=== PATIENT | male | born 1970 | race Caucasian/White ===

== ENCOUNTER 2023-12-19 11:15 | Inpatient (IN) ==
[2023-12-19 12:04] LABS: Basophils # (auto) 0.03 K/uL (0.00-0.20); Basophils % (auto) 0.4 %; Eosinophils # (auto) 0.16 K/uL (0.00-0.50); Eosinophils % (auto) 2.2 %; Hematocrit (blood only) 44.7 % (42.0-52.0); Hemoglobin 14.7 g/dl (14.0-18.0); Immature Granulocytes # (auto) 0.03 K/uL (0.01-0.20); Immature Granulocytes % (auto) 0.4 %; Lymphocytes # (auto) 1.33 K/uL (1.20-3.40); Lymphocytes % (auto) 18.1 %; Mean Corpuscular Hemoglobin 28.4 pg (25.0-34.0); Mean Corpuscular Hgb Conc 32.9 g/dL (32.0-36.0); Mean Corpuscular Volume 86.3 fL (80.0-100.0); Monocytes # (auto) 0.54 K/uL (0.11-0.59); Monocytes % (auto) 7.4 %; Neutrophils # (auto) 5.24 K/uL (1.40-6.50); Neutrophils % (auto) 71.5 %; Platelet Count 289 K/uL (130-400); RDW Coefficient of Variation 13.5 % (11.5-14.5); RDW Standard Deviation 42.3 fL (36.4-46.3); Red Blood Count 5.18 M/uL (4.70-6.10); White Blood Count 7.33 K/ul (4.8-10.8)
[2023-12-19 12:18] LABS: Albumin Globulin Ratio 1.7 (0.9-2); Albumin Level 4.9 gm/dl (3.4-5.0); BUN Creatinine Ratio 12.9 (10-20); Bilirubin,Total 0.5 mg/dl (0.2-1.0); Calcium 9.6 mg/dl (8.6-10.3); Globulin 2.9 gm/dl (2.5-4.0); Potassium 3.8 mmol/L (3.5-5.1); Total Protein 7.8 gm/dl (6.0-8.3)
[2023-12-19 12:26] LABS: INR 3.2 (0.9-1.1); Partial Thromboplastin Ratio 1.6; Partial Thromboplastin Time 44 Seconds (21-31); Prothrombin Time 31.7 Seconds (9.0-12.0)
[2023-12-19 12:29] LABS: Acetaminophen < 3 ug/ml (10-30); Salicylate < 3.0 mg/dl (3.0-30)
[2023-12-19 12:31] LABS: Thyroid Stimulating Hormone 0.889 uIu/ml (0.300-4.500)
--- NOTE | 2023-12-19 12:59 | CT Scan Report ---
CT OF THE HEAD WITHOUT CONTRAST CLINICAL HISTORY: Altered mental status. COMPARISON STUDY: No previous studies for comparison. CT DOSE: 663.26 mGy.cm TECHNIQUE: Helical axial images of the head were obtained without IV contrast. Automated exposure con trol was utilized for the study. A dose lowering technique was utilized adhering to the principles o f ALARA. FINDINGS: This study is mildly compromised by motion artifact. No acute intracranial hemorrhage, midl ine shift or mass effect is present. The ventricular system is unremarkable. The basal cisterns are p atent. No extra-axial collections are present. There are no findings to suggest acute dural sinus thr ombosis or acute territorial infarct. No significant calvarial abnormalities are present. Visualized portions of the sinuses and mastoid air cells are clear. IMPRESSION: 1. No acute intracranial findings. 2. No calvarial fractures. ACT 112: Negative or not required by law. Electronically signed by: Jayden Luna M.D. 12/19/2023 12:57 PM
--- NOTE | 2023-12-19 13:16 | XRay Report ---
XR chest 1V portable CLINICAL HISTORY: Chest pain. COMPARISON STUDY: No previous studies for comparison. FINDINGS: There are median sternotomy wires and a prosthetic aortic valve. Lung volumes are normal. I s no consolidation. An 8 mm right upper lung nodular density is noted. A 1.3 cm irregular density lat eral to the right hilum is present. There is no pneumothorax or pleural effusion. Cardiac size is nor mal. Mediastinal contours are normal. There is no evidence for pulmonary edema. IMPRESSION: 1. No acute cardiopulmonary findings. 2. 1.3 cm right perihilar density and an equivocal 8 mm right upper lobe nodule. These may be artifac tual. However, a chest CT in one month is recommended to exclude a pulmonary nodule. ACT 112: Positive. There are findings on this exam that require communication between the performing entity and the patient following Patient Test Result Information Act ([place] Act 112) guidelines. Electronically signed by: Jayden Luna M.D. 12/19/2023 1:14 PM
[2023-12-19 13:25] LABS: Appearance Urine Clear (Clear); Bacteria Urine Automated None Seen (None Seen); Bilirubin Urine Negative (Negative); Blood Urine Trace (Negative); Cast Urine Automated 0-2 /lpf (0-2); Color Urine Yellow; Epithelial Cell Urine Auto 0-2 /hpf (0-2); Glucose Urine UA 1+ (Negative); Ketones Urine Negative (Negative); Leukocyte Esterase Urine Negative (Negative); Nitrite Urine Negative (Negative); Protein Urine Negative (Negative); RBC Urine Automated 0-2 /hpf (0-2); Specific Gravity Urine 1.021 (1.000-1.030); Urobilinogen Urine Negative (Negative); WBC Urine Automated 0-5 /hpf (0-5); pH Urine 5.5 (4.5-7.5)
[2023-12-19 13:53] LABS: Troponin I High Sensitivity 19.5 pg/ml (0-20)
[2023-12-19 13:59] LABS: Amphetamines+Metham, Urine Pos (Neg); Barbiturates, Urine Neg (Neg); Benzodiazepine, Urine Neg (Neg); Cocaine, Urine Neg (Neg); Fentanyl, Urine Neg (Neg); MDMA (Ecstacy), Urine Neg (Neg); Marijuana, Urine Neg (Neg); Methadone, Urine Neg (Neg); Opiate, Urine Neg (Neg); Phencyclidine, Urine Neg (Neg)
[2023-12-19] MEDS ORDERED: hydrOXYzine HCl 25 MG TAB PO PRN ×2 (16:22→17:34)
--- NOTE | 2023-12-19 17:08 | Emergency Department Note ---
History of Present Illness General Chief complaint: Mental Health Evaluation Stated complaint: MENTAL HEALTH, REF BY PCP Time Seen by Provider: 12/19/23 11:25 History of Present Illness Provider complaint: Mental health evaluation Maximum Pain Intensity: 8 53-year-old female presents emergency department for mental health evaluation. Patient reports he wants to kill himself by taking his gun and shooting himself in the head. Patient reports he has a history of polysubstance abuse and is currently going through divorce with his . Home Medications Medication Instructions Recorded Confirmed Type atorvastatin 20 mg tablet 20 mg PO QAM 08/19/23 12/19/23 History amlodipine 5 mg tablet 10 mg (2 x 5 mg) PO QAM #90 tabs 08/25/23 12/19/23 Rx losartan 50 mg tablet 50 mg PO QAM #90 tabs 08/25/23 12/19/23 Rx warfarin 2.5 mg tablet 7.5 mg PO QAM #300 tabs 08/25/23 12/19/23 Rx Allergies Allergy/AdvReac Type Severity Reaction Status Date / Time No Known Allergies Allergy Verified 12/19/23 09:41 Past Med/Surg History Problem List Depression with suicidal ideation (Acute) Bradycardia Chronic chest pain GERD without esophagitis Depression Low testosterone Ventral hernia Warfarin anticoagulation Ascending aorta dilatation Aortic valvular disorder Anemia Chronic kidney disease Witnessed episode of apnea states patient has apnea while sleeping S/P AVR (aortic valve replacement) (11/2016) Mechanical aortic valve/aortic root Hypertension History of CVA (cerebrovascular accident) (08/2021) L cerebellar CVA GERD (gastroesophageal reflux disease) Patent foramen ovale History of thoracic aortic aneurysm repair (11/2016) Medical History Vision loss of left eye 50% vision loss left eye On anticoagulant therapy Warfarin, mechanical valve, states unable to stop due to history of CVA and MT Myocardial Infarction 2021 Surgical History H/O ascending aorta repair (11/2016) Family History Father Hypertension Mother Hypertension Kidney disease Denies family history of Ovarian cancer Prostate cancer Myocardial infarction Breast cancer Colorectal cancer Social History Smoking Status: Never smoker Second Hand Exposure: No; Do You Dip or Chew Tobacco: No; Hx Alcohol Use: No Hx Substance Use: No Preferred Language: Divehi Visual Impairment: Partially Limited Hearing Ability: Normal Weaving Loom Operator Required: No Beliefs That Will Affect Care: Yazidism marital status: Current Living Situation: Spouse current occupational status: retired Feels Safe at Home: No Is there a partner from a previous relationship who is making you feel unsafe now?: No Diet: regular Diet Comment: regular caffeine: Yes during the past year weight has: remained stable Dental Care, Regularly: Yes Physical Activity Frequency: 1-2 Times per Week Seatbelt Use: always Sunscreen Use: No Gender Identity: Male Assistive Devices: None Physical Exam Vital Signs Vital Signs - 24 hr 12/19/23 11:19 12/19/23 11:59 12/19/23 12:01 Temperature 36.5 C Temperature Source Temporal Artery Scan Pulse Rate 61 Pulse Rate [Apical] 50 L Pulse Rate from SpO2 Sensor Respiratory Rate 18 20 Respiratory Effort / Characteristics Non-Labored Spontaneous Non-Labored Spontaneous Respiratory Depth Normal Normal Blood Pressure 160/89 H Blood Pressure [Right Arm] 142/88 H Blood Pressure Mean 112 Blood Pressure Mean [Right Arm] 106 Blood Pressure Position Sitting Pulse Oximetry 99 95 97 Oxygen Delivery Method Room Air Room Air Sepsis Recent Fever Within 48 Hours No Sepsis New/Unexplained Change in Mental Status No Sepsis Action Taken by Nursing No Action Required 12/19/23 12:30 12/19/23 12:34 12/19/23 12:39 Temperature Temperature Source Pulse Rate 66 50 L Pulse Rate [Apical] Pulse Rate from SpO2 Sensor 49 L Respiratory Rate 17 Respiratory Effort / Characteristics Respiratory Depth Blood Pressure 135/79 Blood Pressure [Right Arm] Blood Pressure Mean 108 Blood Pressure Mean [Right Arm] Blood Pressure Position Pulse Oximetry 99 Oxygen Delivery Method Sepsis Recent Fever Within 48 Hours Sepsis New/Unexplained Change in Mental Status Sepsis Action Taken by Nursing 12/19/23 13:01 12/19/23 13:06 12/19/23 13:21 Temperature Temperature Source Pulse Rate 62 48 L Pulse Rate [Apical] Pulse Rate from SpO2 Sensor 60 49 L Respiratory Rate 20 21 Respiratory Effort / Characteristics Respiratory Depth Blood Pressure 168/94 H Blood Pressure [Right Arm] Blood Pressure Mean 99 Blood Pressure Mean [Right Arm] Blood Pressure Position Pulse Oximetry 98 97 Oxygen Delivery Method Sepsis Recent Fever Within 48 Hours Sepsis New/Unexplained Change in Mental Status Sepsis Action Taken by Nursing 12/19/23 13:30 12/19/23 13:30 12/19/23 13:57 Temperature Temperature Source Pulse Rate 73 66 Pulse Rate [Apical] Pulse Rate from SpO2 Sensor 73 66 Respiratory Rate 19 24 Respiratory Effort / Characteristics Respiratory Depth Blood Pressure 183/92 H Blood Pressure [Right Arm] Blood Pressure Mean 112 Blood Pressure Mean [Right Arm] Blood Pressure Position Pulse Oximetry 100 98 Oxygen Delivery Method Sepsis Recent Fever Within 48 Hours Sepsis New/Unexplained Change in Mental Status Sepsis Action Taken by Nursing 12/19/23 14:00 12/19/23 14:00 12/19/23 14:03 Temperature Temperature Source Pulse Rate 63 Pulse Rate [Apical] 61 Pulse Rate from SpO2 Sensor 63 Respiratory Rate 20 14 Respiratory Effort / Characteristics Respiratory Depth Blood Pressure 148/84 H Blood Pressure [Right Arm] 148/84 H Blood Pressure Mean 94 Blood Pressure Mean [Right Arm] 105 Blood Pressure Position Pulse Oximetry 99 99 Oxygen Delivery Method Room Air Sepsis Recent Fever Within 48 Hours Sepsis New/Unexplained Change in Mental Status Sepsis Action Taken by Nursing 12/19/23 14:18 12/19/23 14:24 12/19/23 14:30 Temperature Temperature Source Pulse Rate 54 L 52 L 53 L Pulse Rate [Apical] Pulse Rate from SpO2 Sensor 54 L 53 L 55 L Respiratory Rate 23 20 25 H Respiratory Effort / Characteristics Respiratory Depth Blood Pressure Blood Pressure [Right Arm] Blood Pressure Mean Blood Pressure Mean [Right Arm] Blood Pressure Position Pulse Oximetry 98 99 97 Oxygen Delivery Method Sepsis Recent Fever Within 48 Hours Sepsis New/Unexplained Change in Mental Status Sepsis Action Taken by Nursing 12/19/23 14:30 12/19/23 14:30 12/19/23 14:45 Temperature Temperature Source Pulse Rate 49 L Pulse Rate [Apical] Pulse Rate from SpO2 Sensor 50 L Respiratory Rate 20 Respiratory Effort / Characteristics Respiratory Depth Blood Pressure 158/94 H 158/94 H Blood Pressure [Right Arm] Blood Pressure Mean 106 106 Blood Pressure Mean [Right Arm] Blood Pressure Position Pulse Oximetry 94 Oxygen Delivery Method Sepsis Recent Fever Within 48 Hours Sepsis New/Unexplained Change in Mental Status Sepsis Action Taken by Nursing 12/19/23 14:54 12/19/23 15:00 12/19/23 15:00 Temperature Temperature Source Pulse Rate 57 L 49 L Pulse Rate [Apical] Pulse Rate from SpO2 Sensor 55 L 50 L Respiratory Rate 20 11 L Respiratory Effort / Characteristics Respiratory Depth Blood Pressure 170/79 H Blood Pressure [Right Arm] Blood Pressure Mean 122 Blood Pressure Mean [Right Arm] Blood Pressure Position Pulse Oximetry 96 97 Oxygen Delivery Method Sepsis Recent Fever Within 48 Hours Sepsis New/Unexplained Change in Mental Status Sepsis Action Taken by Nursing 12/19/23 15:12 12/19/23 15:21 12/19/23 15:30 Temperature Temperature Source Pulse Rate 51 L 51 L 60 Pulse Rate [Apical] Pulse Rate from SpO2 Sensor 51 L 53 L 60 Respiratory Rate 18 18 16 Respiratory Effort / Characteristics Respiratory Depth Blood Pressure Blood Pressure [Right Arm] Blood Pressure Mean Blood Pressure Mean [Right Arm] Blood Pressure Position Pulse Oximetry 96 94 100 Oxygen Delivery Method Sepsis Recent Fever Within 48 Hours Sepsis New/Unexplained Change in Mental Status Sepsis Action Taken by Nursing 12/19/23 15:30 12/19/23 15:30 12/19/23 15:30 Temperature Temperature Source Pulse Rate Pulse Rate [Apical] Pulse Rate from SpO2 Sensor Respiratory Rate Respiratory Effort / Characteristics Respiratory Depth Blood Pressure 157/85 H 157/85 H 157/85 H Blood Pressure [Right Arm] Blood Pressure Mean 111 111 111 Blood Pressure Mean [Right Arm] Blood Pressure Position Pulse Oximetry Oxygen Delivery Method Sepsis Recent Fever Within 48 Hours Sepsis New/Unexplained Change in Mental Status Sepsis Action Taken by Nursing 12/19/23 15:42 Temperature Temperature Source Pulse Rate 57 L Pulse Rate [Apical] Pulse Rate from SpO2 Sensor 58 L Respiratory Rate 15 Respiratory Effort / Characteristics Respiratory Depth Blood Pressure Blood Pressure [Right Arm] Blood Pressure Mean Blood Pressure Mean [Right Arm] Blood Pressure Position Pulse Oximetry 93 Oxygen Delivery Method Sepsis Recent Fever Within 48 Hours Sepsis New/Unexplained Change in Mental Status Sepsis Action Taken by Nursing Physical Exam GENERAL: oriented to person, place, and time. appears well-developed and well- nourished. HENT: Exam performed. - Head: Normocephalic and atraumatic. EYES: Conjunctivae and EOM are normal. Right eye exhibits no discharge. Left eye exhibits no discharge. No scleral icterus. NECK: Normal range of motion. Neck supple. No JVD present. CV: Normal rate, regular rhythm, normal heart sounds and intact distal pulses. There is no peripheral edema. Palpable radial pulses bue. PULM/CHEST: Effort normal and breath sounds normal. No respiratory distress. No stridor. no wheezes. no rales. ABD: The abdomen is soft. There is no tenderness. NEURO: Motor and sensation grossly intact. SKIN: Skin is warm and dry. He is not diaphoretic. PSYCH: normal mood and affect. Behavior is normal. Judgment and thought content normal. Course Course 1125: The patient was evaluated in room A6. A complete history and physical exam was performed 1642: Patient medically cleared. Admitted to 3 S. Medical Decision Making Medical Records Attestation: I reviewed the patient's medical records. External medical records reviewed. Patient was seen in his PCPs depression today. According to Rigoberto Hoffmann's note the patient has chronic chest pain and has had multiple negative cardiac workups including negative EKGs troponins and CTA of the chest. Laboratory Data Attestation: I reviewed the patient's lab results. 12/19/23 11:33 12/19/23 11:33 Lab Results 12/19/23 12/19/23 Range/Units 11:33 13:11 WBC 7.33 (4.8-10.8) K/ul RBC 5.18 (4.70-6.10) M/uL Hgb 14.7 (14.0-18.0) g/dl Hct 44.7 (42.0-52.0) % MCV 86.3 (80.0-100.0) fL MCH 28.4 (25.0-34.0) pg MCHC 32.9 (32.0-36.0) g/dL RDW Std Deviation 42.3 (36.4-46.3) fL RDW Coeff of Olivia 13.5 (11.5-14.5) % Plt Count 289 (130-400) K/uL MPV 9.0 L (9.4-12.4) fL Immature Gran % (Auto) 0.4 % Neut % (Auto) 71.5 % Lymph % (Auto) 18.1 % Whitley % (Auto) 7.4 % Eos % (Auto) 2.2 % Baso % (Auto) 0.4 % Neut # (Auto) 5.24 (1.40-6.50) K/uL Lymph # (Auto) 1.33 (1.20-3.40) K/uL Whitley # (Auto) 0.54 (0.11-0.59) K/uL Eos # (Auto) 0.16 (0.00-0.50) K/uL Baso # (Auto) 0.03 (0.00-0.20) K/uL Immature Gran # (Auto) 0.03 (0.01-0.20) K/uL PT 31.7 H (9.0-12.0) Seconds INR 3.2 H (0.9-1.1) APTT 44 H (21-31) Seconds PTT Ratio 1.6 Sodium 141 (136-145) mmol/L Potassium 3.8 (3.5-5.1) mmol/L Chloride 108 H (98-107) mmol/L Carbon Dioxide 29 (21-32) mmol/L Anion Gap 4 (3-11) BUN 18 (6-23) mg/dl Creatinine 1.39 (0.6-1.4) mg/dl Est Cr Clr Drug Dosing 73.0 ml/min eGFR 60.24 BUN/Creatinine Ratio 12.9 (10-20) Glucose 88 (70-99(Fasting)) mg/dl Calcium 9.6 (8.6-10.3) mg/dl Total Bilirubin 0.5 (0.2-1.0) mg/dl AST 17 (13-39) U/L ALT 14 (7-52) U/L Alkaline Phosphatase 76 (34-104) U/L Troponin I High Sens 19.5 (0-20) pg/ml Total Protein 7.8 (6.0-8.3) gm/dl Albumin 4.9 (3.4-5.0) gm/dl Globulin 2.9 (2.5-4.0) gm/dl Albumin/Globulin Ratio 1.7 (0.9-2) TSH 0.889 (0.300-4.500) uIu/ml Urine Color Yellow Urine Appearance Clear (Clear) Urine pH 5.5 (4.5-7.5) Ur Specific [place] 1.021 (1.000-1.030) Urine Protein Negative (Negative) Urine Glucose (UA) 1+ H (Negative) Urine Ketones Negative (Negative) Urine Blood Trace H (Negative) Urine Nitrite Negative (Negative) Urine Bilirubin Negative (Negative) Urine Urobilinogen Negative (Negative) Ur Leukocyte Esterase Negative (Negative) Urine WBC (Auto) 0-5 (0-5) /hpf Urine RBC (Auto) 0-2 (0-2) /hpf U Hyaline Cast (Auto) 0-2 (0-2) /lpf U Epithel Cells (Auto) 0-2 (0-2) /hpf Urine Bacteria (Auto) None Seen (None Seen) Salicylates < 3.0 L (3.0-30) mg/dl Urine Opiates Screen Neg (Neg) Ur Methadone, Qual Neg (Neg) Urine Fentanyl Screen Neg (Neg) Acetaminophen < 3 L (10-30) ug/ml Urine Barbiturates Neg (Neg) Ur Phencyclidine (PCP) Neg (Neg) U Amphetamin/Meth Scrn Pos H (Neg) MDMA (Ecstasy) Screen Neg (Neg) U Benzodiazepines Scrn Neg (Neg) Ur Cocaine Metabolite Neg (Neg) U Marijuana (THC) Screen Neg (Neg) Ethyl Alcohol mg/dL < 10.0 (<10.0) mg/dl Imaging Data Attestation: I personally reviewed and interpreted this imaging study as follows: My Impression: Chest x-ray negative. Airway clear. No pneumothorax. No consolidation. No cardiomegaly or cephalization.. No free air under the diaphragm. No fractures of the skeletal structures. Radiologist's Impression: Chest X-Ray 12/19/23 12:06 XR chest 1V portable CLINICAL HISTORY: Chest pain. COMPARISON STUDY: No previous studies for comparison. FINDINGS: There are median sternotomy wires and a prosthetic aortic valve. Lung volumes are normal. Is no consolidation. An 8 mm right upper lung nodular density is noted. A 1.3 cm irregular density lateral to the right hilum is present. There is no pneumothorax or pleural effusion. Cardiac size is normal. Mediastinal contours are normal. There is no evidence for pulmonary edema. IMPRESSION: 1. No acute cardiopulmonary findings. 2. 1.3 cm right perihilar density and an equivocal 8 mm right upper lobe nodule. These may be artifactual. However, a chest CT in one month is recommended to exclude a pulmonary nodule. ACT 112: Positive. There are findings on this exam that require communication between the performing entity and the patient following Patient Test Result Information Act ([place] Act 112) guidelines. Electronically signed by: Jayden Luna M.D. 12/19/2023 1:[address] 12/19/23 12:32 CT OF THE HEAD WITHOUT CONTRAST CLINICAL HISTORY: Altered mental status. COMPARISON STUDY: No previous studies for comparison. CT DOSE: 663.26 mGy.cm TECHNIQUE: Helical axial images of the head were obtained without IV contrast. Automated exposure control was utilized for the study. A dose lowering technique was utilized adhering to the principles of ALARA. FINDINGS: This study is mildly compromised by motion artifact. No acute intracranial hemorrhage, midline shift or mass effect is present. The ventricular system is unremarkable. The basal cisterns are patent. No extra- axial collections are present. There are no findings to suggest acute dural sinus thrombosis or acute territorial infarct. No significant calvarial abnormalities are present. Visualized portions of the sinuses and mastoid air cells are clear. IMPRESSION: 1. No acute intracranial findings. 2. No calvarial fractures. ACT 112: Negative or not required by law. Electronically signed by: Jayden Luna M.D. 12/19/2023 12:57 PM ECG Data Attestation: I personally reviewed and interpreted this ECG as follows: Rate (beats per minute): 52 Rhythm: + normal sinus ECG Intervals/blocks: + Normal QRS, + Normal LA and + Normal QT-c ECG ST segments: + Normal ST segments MDM Narrative 1125: The patient was evaluated in room A6. A complete history and physical exam was performed 1642: Patient medically cleared. Admitted to 3 S. Impression & Plan Depression with suicidal ideation Discharge Plan Visit Data Chief Complaint: Mental Health Evaluation Stated Complaint: MENTAL HEALTH, REF BY PCP ED Provider: Randal King Discharge Problem: Depression with suicidal ideation Patient Disposition: Admitted As Inpatient Discharge Instructions Interventions: ED Discharge Assessment Last Done: 12/19/23 16:42
[2023-12-19] MEDS ORDERED: ALUMINUM/MAGNESIUM SUSP 30 ML UDC PO PRN (17:34)
[2023-12-19] MEDS ORDERED: BISMUTH SUBSALICYLATE 262 MG CHEW PO PRN (17:34)
[2023-12-19] MEDS ORDERED: MAGNESIUM HYDROXIDE SUSP 30 ML UDC PO PRN (17:34)
[2023-12-19] MEDS ORDERED: ACETAMINOPHEN 325 MG TAB PO PRN (17:34)
[2023-12-19] MEDS ORDERED: SODIUM CHLORIDE 0.65% NA SOLN 45 ML (OCEAN) PRN (17:34)
[2023-12-19 18:06] VITALS: RESP 16; O2SAT 98
[2023-12-19] MEDS: amLODIPine BESYLATE 5 MG TAB PO ONE (20:59)
--- NOTE | 2023-12-20 06:02 | Electrocardiogram Report ---
Test Reason : Blood Pressure : */* mmHG Vent. Rate : 52 BPM Atrial Rate : 52 BPM P-R Int : 148 ms QRS Dur : 96 ms QT Int : 460 ms P-R-T Axes : 35 29 -13 degrees QTcB Int : 427 ms Sinus bradycardia Nonspecific ST and T wave abnormality Abnormal ECG No previous ECGs available Confirmed by Jeremy Haile ([id number]) on 12/20/2023 6:02:22 AM Referred By: Confirmed By: Jeremy Haile
[2023-12-20 08:08] LABS: Prothrombin Time 29.3 Seconds (9.0-12.0)
[2023-12-20] MEDS: amLODIPine BESYLATE 5 MG TAB PO SCH (09:08)
[2023-12-20] MEDS: LOSARTAN POTASSIUM 50 MG TAB PO SCH (09:09)
[2023-12-20] MEDS: ATORVASTATIN 20 MG TAB PO SCH (09:09)
[2023-12-20] MEDS: ESCITALOPRAM OXALATE 10 MG TAB PO ONE (13:27)
--- NOTE | 2023-12-20 15:12 | History & Physical ---
Date of Service December 20, 2023 Impression / Recommendations Impression SANCHEZ DEXTER is a 53-year-old M who currently lives alone, unemployed on disability, has a history of depression, stimulant use disorder, and was admitted on 12/19/23 16:22 on a 201 voluntary commitment for suicidal ideation. Presentation consistent with MDD, recurrent, severe, Methamphetamine use disorder, Prolonged QT interval. H/o stimulant use with associated relationship, vocational, and health impacts. Patient is contemplative about abstaining from drugs and is interested in a rehab program. Likely was using to cope with low mood. Labs reviewed: CBC, CMP, TSH within expected limits; INR 3.2 and slightly high. UDS+amphetamines, BAL 0 on admission; Prolonged QTc; BP high likely anxiety response. Past incomplete trial of SSRI antidepressant and will start Escitalopram given limited effect on QTc. Would benefit from continued motivational interviewing, rehab referral. Letter sent to lard tub washer for pending PFA hearing about current hospitalization. Overall, I spent a total of 80 minutes with this case including review of chart records, nursing report, review of lab work, direct evaluation of the patient at bedside, counseling the patient, multidisciplinary team meeting, orders, and documentation in the electronic health record. (1) Suicidal ideation: (2) MDD (major depressive disorder), recurrent episode, severe: (3) Methamphetamine use disorder, moderate: (4) Warfarin anticoagulation: (5) Hypertension: (6) S/P AVR (aortic valve replacement): (7) History of CVA (cerebrovascular accident): (8) History of thoracic aortic aneurysm repair: (9) Prolonged QT interval: Plan 12/20/23:The patient was admitted to the [facility]) on q15 min checks (behavioral with suicide precautions) for safety. The p atient will participate in group, recreational, and milieu therapies and will be offered additional individual and family sessions as clinically appropriate. -Start Escitalopram 5mg daily and increase to 10mg daily tomorrow -Repeat EKG tomorrow 12/20 -Questionaire: Anjana Simon PD, LAN-7, PHQ-9 -Referral to inpatient rehab Inventory Assets Strengths: motivated, support seeking Needs: improved insight, drug abstinence Suicide Risk Level Suicide Risk Level: High-Moderate (q15 min suicide checks) Risk Factors Assessment Male: Yes : Yes Do You Have Access To A Gun?: No Health Problems: Yes Mental Health Diagnoses: Yes Substance Use Disorders: Yes Previous Attempt: No Family History of Suicide: No Previous Psychiatric Hospitalization: No Hopelessness: Yes Protective Factors Assessment Church Beliefs: No : No Responsible for Young Children: Yes Employed: No (Disability) Stable Relationships: No Supportive Family: No Good Rapport with Provider: Yes Absence of Any Risk Factors Above: No Psychiatric History Identifying Data SANCHEZ DEXTER is a 53-year-old M who currently lives alone, unemployed on disability, has a history of depression, stimulant use disorder, and was admitted on 12/19/23 16:22 on a 201 voluntary commitment for suicidal ideation. 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 Recently patient lives in home rented from parents. filed emergent PFA against him for her and son for acting erratically. 30 day PFA. Part of PFA resolution and 's wishes include drug and alcohol treatment. Reports recent referral to IOP for drug and alcohol. Recently pt c/o of CP and was evaluated in ER. When seeing PCP following day stated SI and PCP referred him to the Er. Pt c/o hopelessness, low mood, poor sleep, recurrent distressing dreams, poor appetite, excess guilt, anhedonia.Denies hypervigilance, flashbacks. C/o on- going SI. Reports cocaine use initially in mid 20s for social reasons then escalated to escape relationship problems, cope with low mood. After 2017 surgery esclated to smoked methamphetamine for inc energy and mood to keep up with demands of practice. Denies IVDA. Occasional MJ; denies daily use. Reports stimulant use has caused neglect at work, trouble keeping up with finances, anger issues pushing family away, and heart problems. Interested in rehab. Father and mother with h/o depression. Past 4-5 day trial of sertraline and self d/c. Social history: Lives alone in apartment. Good childhood with supportive parents. Worked as chiropractor for 25 years. . H/o heart aneurysm, CO, CVA with partial L vision loss, dec energy. Child support payments. 1 biological sister. No past inpatient psychiatry admissions. Past Psychiatric History Current Psychiatric Diagnosis: None Do You Have Access To A Gun?: No History of Previous Suicide Attempt: No Allergies Allergy/AdvReac Type Severity Reaction Status Date / Time No Known Allergies Allergy Verified 12/19/23 09:41 Home Medications Medication Instructions Recorded Confirmed Type atorvastatin 20 mg tablet 20 mg PO QAM 08/19/23 12/19/23 History amlodipine 5 mg tablet 10 mg (2 x 5 mg) PO QAM #90 tabs 08/25/23 12/19/23 Rx losartan 50 mg tablet 50 mg PO QAM #90 tabs 08/25/23 12/19/23 Rx warfarin 2.5 mg tablet 7.5 mg PO QAM #300 tabs 08/25/23 12/19/23 Rx Family History Family History of: None Family Mental Health History Comment: no fam hx Alcohol History Hx of Alcohol Use Over the Past 12 Months: No AUDIT Total Score: 0 Smoking Use Have You Smoked or Used Tobacco Products in the Last 30 Days: No tobacco type: cigarettes Smoking Status: Never smoker Substance History Hx of Prescription Med Misuse Over the Past 12 Months: No Hx of Over the Counter Med Misuse Over the Past 12 Months: No Hx of Inhalent Misuse Over the Past 12 Months: No Hx of Organic Substance Use Over the Past 12 Months: Yes (marijana) Hx of Illegal Substances/Street Drug Use Over Past 12 Months: Yes (Meth; Cocaine) Problems as a Result of Past Substance Use: Relationships Ended, Life out of Control and Estranged from Family Problems as a Result of Past Substance Use Comments: unknown Personal History Living Arrangements: Living with parents Living Arrangements Comments: Currently displaced from home until Jan.04 d/t PFA Highest Grade Completed: Graduate School Highest Grade Completed Comment: Doctorate Marital Status: Number Of Children: 3 Beliefs That Will Affect Care: Church Patient History Medical History Vision loss of left eye 50% vision loss left eye On anticoagulant therapy Warfarin, mechanical valve, states unable to stop due to history of CVA and CO Myocardial Infarction 2021 Surgical History H/O ascending aorta repair (11/2016) Family History Father Hypertension Mother Hypertension Kidney disease Denies family history of Ovarian cancer Prostate cancer Myocardial infarction Breast cancer Colorectal cancer Social History Smoking Status: Never smoker Second Hand Exposure: No; Do You Dip or Chew Tobacco: No; Hx Alcohol Use: No Hx Substance Use: No Preferred Language: Mohawk Communication Ability: Effective Visual Impairment: Partially Limited Hearing Ability: Normal Watch Parts Grinder Required: No Beliefs That Will Affect Care: Church marital status: Current Living Situation: Spouse current occupational status: retired Feels Safe at Home: No Is there a partner from a previous relationship who is making you feel unsafe now?: No Diet: regular Diet Comment: regular caffeine: Yes during the past year weight has: remained stable Dental Care, Regularly: Yes Physical Activity Frequency: 1-2 Times per Week Seatbelt Use: always Sunscreen Use: No Gender Identity: Male Assistive Devices: None Physical Exam Mental Examination: Appearance: Disheveled Eye Contact: Sporadic Contact Motor Behavior: Unremarkable Speech: Soft Mood: Anxious and Sad Affect: Congruent Thought Process: Intact, Circumstantial and Linear Thought Content: Intact Hallucinations: None Insight: Poor (to limited) Judgement: Poor (recurrent drug use despite problems) Vital Signs (Past 24 Hours): Last Vital Signs Temp 36.6 C 12/20/23 06:44 Pulse 57 L 12/20/23 06:45 Resp 16 12/20/23 06:44 BP 170/84 H 12/20/23 06:45 Pulse Ox 98 12/19/23 16:00 O2 Del Method Room Air 12/19/23 16:00 Exam Statement: A physical exam was performed in the ED for the purposes of medical clearance. I accept that physical as correct and adequate for the purposes of the inpatient physical exam. Results & Data ([facility]) Laboratory Results Laboratory Results - last 24 hr 12/19/23 12/20/23 Unknown 06:44 PT 29.3 H INR 3.0 H SARS-CoV-2, RNA, NAAT NEGATIVE Current Inpatient Medications Current Inpatient Medications: Current Inpatient Medications Acetaminophen (Acetaminophen 325 Mg Tab) 650 mg PO Q4H PRN PRN Reason: Headache or Minor Fever Stop: 01/18/24 17:33 Al Hydrox/Mg Hydrox/Simethicone (Aluminum/Magnesium Susp 30 Ml Udc) 30 ml PO Q4H PRN PRN Reason: GI Upset Stop: 01/18/24 17:33 Amlodipine Besylate (Amlodipine Besylate 5 Mg Tab) [facility] [place]: 01/19/24 08:59 Last Admin: 12/20/23 09:08 Dose: 10 mg Atorvastatin Calcium (Atorvastatin 20 Mg Tab) 20 mg PO QAM [facility] Stop: 01/19/24 08:59 Last Admin: 12/20/23 09:09 Dose: 20 mg Bismuth Subsalicylate (Bismuth Subsalicylate 262 Mg Chew) 2 tab PO Q30M PRN PRN Reason: Loose Stool/Diarrhea Stop: 01/18/24 17:33 Escitalopram Oxalate (Escitalopram Oxalate 10 Mg Tab) 10 mg [facility] Stop: 01/20/24 08:59 Hydroxyzine HCl (Hydroxyzine Hcl 25 Mg Tab) 50 mg PO HSZ PRN PRN Reason: Insomnia Stop: 01/18/24 16:21 Hydroxyzine HCl (Hydroxyzine Hcl 25 Mg Tab) 50 mg PO HSZ PRN PRN Reason: Insomnia Stop: 01/18/24 17:33 Losartan Potassium (Losartan Potassium 50 Mg Tab) 50 mg [facility] Stop: 01/19/24 08:59 Last Admin: 12/20/23 09:09 Dose: 50 mg Magnesium Hydroxide (Magnesium Hydroxide Susp 30 Ml Udc) 30 ml PO DAILY PRN PRN Reason: Constipation Stop: 01/18/24 17:33 Sodium Chloride (Sodium Chloride 0.65% Na Soln 45 Ml ([place])) 1 - 2 sprays NA PRN PRN PRN Reason: Nasal Dryness/Congestion Stop: 01/18/24 17:33 Warfarin Sodium (Warfarin Sod 7.5 Mg Tab) 7.5 mg PO DAILY@1600 [facility] Stop: 01/19/24 15:59
[2023-12-20] MEDS: WARFARIN SOD 7.5 MG TAB PO SCH (17:21)
[2023-12-21] MEDS: CHOLECALCIFEROL 125 MCG (5,000 UNITS) TAB PO SCH (08:58)
[2023-12-21] MEDS: ESCITALOPRAM OXALATE 10 MG TAB PO SCH (08:58)
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
[2023-12-21 17:09] LABS: INR 2.7 (0.9-1.1); Prothrombin Time 26.5 Seconds (9.0-12.0)
--- NOTE | 2023-12-21 21:13 | Electrocardiogram Report ---
Test Reason : Blood Pressure : */* mmHG Vent. Rate : 59 BPM Atrial Rate : 59 BPM P-R Int : 154 ms QRS Dur : 94 ms QT Int : 418 ms P-R-T Axes : 41 61 79 degrees QTcB Int : 413 ms Sinus bradycardia Nonspecific ST and T wave abnormality When compared with ECG of 19-Dec-2023 11:31, No significant change Confirmed by Jeremy Haile ([id number]) on 12/21/2023 9:12:58 PM Referred By: Rigoberto Jett Confirmed By: Jeremy Haile
[2023-12-22 06:52] VITALS: TEMP 97.7
[2023-12-22 08:32] LABS: INR 2.7 (0.9-1.1)
--- NOTE | 2023-12-22 08:57 | Discharge Summary ---
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 Recently patient lives in home rented from parents. filed emergent PFA against him for her and son for acting erratically. 30 day PFA. Part of PFA resolution and 's wishes include drug and alcohol treatment. Reports recent referral to [facility] for drug and alcohol. Recently pt c/o of CP and was evaluated in ER. When seeing PCP following day stated SI and PCP referred him to the Er. Pt c/o hopelessness, low mood, poor sleep, recurrent distressing dreams, poor appetite, excess guilt, anhedonia.Denies hypervigilance, flashbacks. C/o on- going SI. Reports cocaine use initially in mid 20s for social reasons then escalated to escape relationship problems, cope with low mood. After 2017 surgery esclated to smoked methamphetamine for inc energy and mood to keep up with demands of practice. Denies IVDA. Occasional MJ; denies daily use. Reports stimulant use has caused neglect at work, trouble keeping up with finances, anger issues pushing family away, and heart problems. Interested in rehab. Father and mother with h/o depression. Past 4-5 day trial of sertraline and self d/c. Social history: Lives alone in apartment. Good childhood with supportive parents. Worked as chiropractor for 25 years. . H/o heart aneurysm, HI, CVA with partial L vision loss, dec energy. Child support payments. 1 biological sister. No past inpatient psychiatry admissions. Physical Exam Mental Examination Appearance: Disheveled Eye Contact: Sporadic Contact Motor Behavior: Unremarkable Speech: Soft Mood: Euthymic Affect: Congruent Thought Process: Intact, Circumstantial and Linear Thought Content: Intact Hallucinations: None Insight: Poor (to limited) Judgement: Poor (recurrent drug use despite problems) Vital Signs (Past 24 Hours) Last Vital Signs Temp 36.5 C 12/22/23 06:50 Pulse 65 12/22/23 06:51 Resp 16 12/22/23 06:50 BP 154/81 H 12/22/23 06:51 Pulse Ox 98 12/19/23 16:00 O2 Del Method Room Air 12/19/23 16:00 Principal Diagnosis Major Depressive Disorder, recurrent, severe Psychiatric Data See daily stay summary. In short, safety was maintained and the patient was cooperative with care. Medication changes included starting Escitalopram 10mg daily and they tolerated this well. A family session was held and safety plan was completed prior to discharge. We identified triggers for relapse and engage in relapse prevention training. Conducted motivational interviewing. Patient reports longer than intended use of drugs, attempts to cut down or unsuccessful, extended periods of recovery from drugs, increased cravings, and trouble for failing work home and social obligations. Patient is in contemplative to preparation stages about abstaining from drugs and is interested in a rehab program. He denies SI and is future oriented towards rehab. QTc normalized by discharge with improvement in systolic BP likely due to lessened anxiety. Day of Discharge Assessment Today the patient voices readiness for discharge. They note improvement in mood and deny thoughts to harm self or others. Thoughts remain organized and they are improved from admission. There is no evidence of psychosis. They agree to take mediations as prescribed and keep follow-up appointments. They are stable for discharge to outpatient level of care. Transition of Care Transition Of Care Record: was reviewed with the patient Advance Directives Advance Directives Information Provided: No Advance Directives: No Mental Health Advance Directive: No Advance Directives on File: No Living Will: No Power of Ultrasound Technol: No Advance Directives Reason:: Declines as Mental Health Visit. Risk Factors Assessment Male: Yes : Yes Do You Have Access To A Gun?: No Health Problems: Yes Mental Health Diagnoses: Yes Substance Use Disorders: Yes Previous Attempt: No Family History of Suicide: No Previous Psychiatric Hospitalization: No Hopelessness: Yes Protective Factors Assessment Episcopal Beliefs: No : No Responsible for Young Children: Yes Employed: No (Disability) Stable Relationships: No Supportive Family: No Good Rapport with Provider: Yes Absence of Any Risk Factors Above: No Discharge Data Lab Results 12/19/23 12/19/23 12/19/23 11:33 13:11 Unknown WBC 7.33 RBC 5.18 Hgb 14.7 Hct 44.7 MCV 86.3 MCH 28.4 MCHC 32.9 RDW Std Deviation 42.3 RDW Coeff of Olivia 13.5 Plt Count 289 MPV 9.0 L Immature Gran % (Auto) 0.4 Neut % (Auto) 71.5 Lymph % (Auto) 18.1 [place] % (Auto) 7.4 Eos % (Auto) 2.2 Baso % (Auto) 0.4 Neut # (Auto) 5.24 Lymph # (Auto) 1.33 [place] # (Auto) 0.54 Eos # (Auto) 0.16 Baso # (Auto) 0.03 Immature Gran # (Auto) 0.03 PT 31.7 H INR 3.2 H APTT 44 H PTT Ratio 1.6 Sodium 141 Potassium 3.8 Chloride 108 H Carbon Dioxide 29 Anion Gap 4 BUN 18 Creatinine 1.39 Est Cr Clr Drug Dosing 73.0 eGFR 60.24 BUN/Creatinine Ratio 12.9 Glucose 88 Calcium 9.6 Total Bilirubin 0.5 AST 17 ALT 14 Alkaline Phosphatase 76 Troponin I High Sens 19.5 Total Protein 7.8 Albumin 4.9 Globulin 2.9 Albumin/Globulin Ratio 1.7 TSH 0.889 Urine Color Yellow Urine Appearance Clear Urine pH 5.5 Ur Specific [place] 1.021 Urine Protein Negative Urine Glucose (UA) 1+ H Urine Ketones Negative Urine Blood Trace H Urine Nitrite Negative Urine Bilirubin Negative Urine Urobilinogen Negative Ur Leukocyte Esterase Negative Urine WBC (Auto) 0-5 Urine RBC (Auto) 0-2 U Hyaline Cast (Auto) 0-2 U Epithel Cells (Auto) 0-2 Urine Bacteria (Auto) None Seen Salicylates < 3.0 L Urine Opiates Screen Neg Ur Methadone, Qual Neg Urine Fentanyl Screen Neg Acetaminophen < 3 L Urine Barbiturates Neg Ur Phencyclidine (PCP) Neg U Amphetamin/Meth Scrn Pos H MDMA (Ecstasy) Screen Neg U Benzodiazepines Scrn Neg Ur Cocaine Metabolite Neg U Marijuana (THC) Screen Neg Ethyl Alcohol mg/dL < 10.0 SARS-CoV-2, RNA, NAAT NEGATIVE 12/20/23 12/21/23 12/22/23 06:44 15:53 07:49 WBC RBC Hgb Hct MCV MCH MCHC RDW Std Deviation RDW Coeff of [place] Plt Count MPV Immature Gran % (Auto) Neut % (Auto) Lymph % (Auto) [place] % (Auto) Eos % (Auto) Baso % (Auto) Neut # (Auto) Lymph # (Auto) [place] # (Auto) Eos # (Auto) Baso # (Auto) Immature Gran # (Auto) PT 29.3 H 26.5 H 27.0 H INR 3.0 H 2.7 H 2.7 H APTT PTT Ratio Sodium Potassium Chloride Carbon Dioxide Anion Gap BUN Creatinine Est Cr Clr Drug Dosing eGFR BUN/Creatinine Ratio Glucose Calcium Total Bilirubin AST ALT Alkaline Phosphatase Troponin I High Sens Total Protein Albumin Globulin Albumin/Globulin Ratio TSH Urine Color Urine Appearance Urine pH Ur Specific [place] Urine Protein Urine Glucose (UA) Urine Ketones Urine Blood Urine Nitrite Urine Bilirubin Urine Urobilinogen Ur Leukocyte Esterase Urine WBC (Auto) Urine RBC (Auto) U Hyaline Cast (Auto) U Epithel Cells (Auto) Urine Bacteria (Auto) Salicylates Urine Opiates Screen Ur Methadone, Qual Urine Fentanyl Screen Acetaminophen Urine Barbiturates Ur Phencyclidine (PCP) U Amphetamin/Meth Scrn MDMA (Ecstasy) Screen U Benzodiazepines Scrn Ur Cocaine Metabolite U Marijuana (THC) Screen Ethyl Alcohol mg/dL SARS-CoV-2, RNA, NAAT Hospital Course (1) MDD (major depressive disorder), recurrent episode, severe: (2) Methamphetamine use disorder, moderate: (3) Cluster B personality disorder in adult: (4) Warfarin anticoagulation: (5) Hypertension: (6) S/P AVR (aortic valve replacement): (7) History of CVA (cerebrovascular accident): (8) History of thoracic aortic aneurysm repair: Plan 12/21/23: Repeat EKG. 12/20/23:The patient was admitted to the [facility] ([facility] unit) on q15 min checks (behavioral with suicide precautions) for safety. The patient will participate in group, recreational, and milieu therapies and will be offered additional individual and family sessions as clinically appropriate. -Start Escitalopram 5mg daily and increase to 10mg daily tomorrow -Repeat EKG tomorrow 12/20 -Questionaire: [place] PD, LAN-7, PHQ-9 -Referral to inpatient rehab Mental Health & Subst Abuse Tx Psychiatrist Name of Psychiatrist: Yogi [place]ell Psychiatrist's Psychiatric Appointment Comment: Patient will be scheduled to be seen by psychiatrist after intake appt Therapist Name of Therapist: [facility] The[facility]ist's Date of Therapist Appointment: 12/26/23 - Tuesday Time of Therapist Appointment: 2:30PM - in person Therapy Appointment Comment: [address], [place] [address] Chair Mechanic Name of Chair Mechanic: Waiting for Yoon Moss to contact Post Discharge Appointments Primary Care Physician Name Of Family Doctor/PCP: Rigoberto Jett [facility] Date of Future Appointment with PCP: Sent by PCP to ED today Discharge Plan Discharge Items Patient Disposition: Home - Self-Care Reason For Visit: SI WITH PLAN Discharge Diagnosis: (1) MDD (major depressive disorder), recurrent episode, severe: (2) Methamphetamine use disorder, moderate: (3) Cluster B personality disorder in adult: (5) Warfarin anticoagulation: (6) Hypertension: (7) S/P AVR (aortic valve replacement): (8) History of CVA (cerebrovascular accident): (9) History of thoracic aortic aneurysm repair: Condition on Discharge: Fair Activity: Resume your previous activity Non-emergency contact: Primary Care Provider and Psychiatrist Call non-emergency contact if: you have any medication questions and your symptoms worsen Follow-up/Referrals: Joie Ortiz DO [Primary Care Provider] - Diet: Regular Addtl Attending Provider Instructions: -Continue Escitalopram 10mg daily -Engage in rehab, abstain from drugs, reflect on past relapse and change environment, perspective, contacts, behaviors to prevent future relapse Pending Studies at Discharge: No Stand-Alone Forms: My [employer], Smoking Cessation Medications and DC Order Prescriptions: New escitalopram oxalate 10 mg Tablet 10 mg PO QAM Qty: 30 0RF cholecalciferol (vitamin D3) 125 mcg (5,000 unit) Tablet 125 mcg PO QAM Qty: 30 0RF Continued warfarin 2.5 mg tablet 7.5 mg PO QAM Qty: 300 3RF Protocol: Dose Management Condition: Tuesday Dose/Route: 7.5 mg Instruction: 3 x 2.5 mg tablets Condition: Tuesday Dose/Route: 7.5 mg Instruction: 3 x 2.5 mg tablets Condition: Tuesday Dose/Route: 7.5 mg Instruction: 3 x 2.5 mg tablets Condition: Tuesday Dose/Route: 7.5 mg Instruction: 3 x 2.5 mg tablets Condition: Dose/Route: 7.5 mg Instruction: 3 x 2.5 mg tablets Condition: Tuesday Dose/Route: 7.5 mg Instruction: 3 x 2.5 mg tablets Condition: Tuesday Dose/Route: 7.5 mg Instruction: 3 x 2.5 mg tablets Protocol Text: Adjustment Start Date: Tuesday09/05/23 INR Value: 2.5 INR Date: 09/05/23 Recheck Date: 09/12/23 amlodipine 5 mg tablet 10 mg PO QAM Qty: 90 2RF losartan 50 mg tablet 50 mg PO QAM Qty: 90 1RF atorvastatin 20 mg tablet 20 mg PO QAM Discharge Orders: Discharge Order (Routine); Ordered 12/22/23 Ordered By: Robert Velásquez Admission Data Admit Date/Time: 12/19/23 16:22 Attending Provider: Robert Velásquez Admit Provider: Robert Velásquez Primary Care Provider: Joie Ortiz Coding [place] [address] D/C day mgmt > 30 min Patient Type Established History Detailed Exam Detailed Medical Decision Making Moderate Complexity Diagnoses MDD (major depressive disorder), recurrent episode, severe F33.2 Methamphetamine use disorder, moderate F15.20 Cluster B personality disorder in adult F60.9 Warfarin anticoagulation Z79.01 Hypertension I10 S/P AVR (aortic valve replacement) Z95.2 History of CVA (cerebrovascular accident) Z86.73 History of thoracic aortic aneurysm repair Z98.890; Z86.79
[2023-12-22 09:58] VITALS: BP 152/88; PULSE 62
[2023-12-22 15:02] LABS: Amphetamine Urine, Confirm 471 ng/mL (<250); Methamphetamine, Ur Confirm 1300 ng/mL (<250)
== END 2023-12-22 10:35 | disposition home or self-care (01) | DRG 885 ==
LOC: ED 11:15 → 3S 16:22